=== PATIENT | female | born 1965 | race Caucasian/White ===

== ENCOUNTER 2017-05-26 22:48 | Inpatient (IN) | payer MEDICARE, MEDICAID ==
[~2017-05-26] VITALS: Ht 167.6 cm; Wt 83.0 kg
[~2017-05-26 22:48] MED LIST: AMLO10TA2 PO; AMOX1TAB61 PO; ASPI-612 PO; BUPR300T3 PO; CARV3.12 PO; CHOL500050 PO; FERR-26 PO; FURO80TA3 PO; GABA-585 PO; GABA-586 PO; HYDR-2758 PO; INSU100C SQ; INSU100V8 SQ; LEVO100T5 PO; LORA0.5T PO; METF500T4 PO; MULT1TAB52 PO; ONDA4TAB10 SL; PANT40TA5 PO; SENN-79 PO; VERA120T5 PO; [UNRECOGNIZED DRUG - OTHER]; vitamin c
--- NOTE | 2017-05-26 23:24 | PHYS DOC ---
Past Medical History Past Medical History: Anemia, Cancer, CHF, Depression, Diabetes-Type II, Hypertension, Hypothyroid, Renal Disease, Other Additional Past Medical Histor: cancer of vulva, central tremors,migraine Past Surgical History: Appendectomy, Cholecystectomy, Tubal ligation Additional Past Surgical Histo: med. dx -neuropathy,retinopathy, restless leg syndrome, ear graph Alcohol Use: None Drug Use: None Adult General Chief Complaint Chief Complaint: HEADACHE HPI HPI Patient is a 51 year old female who presents with headache. She states that she has a history of migraines and this is a little different his been going on for 5 days and has not stopped. She denies any fevers chills, vomiting, or neck stiffness. Rates the pain is in her bilateral ears which is a little bit different than her normal pain she does have photophobia and nausea which is her normal migraine. She states usually she takes Vicodin when it flares up but she's been away from her home for the last 5 days and her Vicodin is at home. She states Home is about 70 miles away. She was seen by 2 different ERs the first one she was given Reglan and Benadryl and then the second one she was going to be admitted based on her hyperkalemia but she was requesting narcotic pain meds and since it wasn't offered she decided to sign out AMA. She states she just got off antibiotics recently for an ear infection. Review of Systems Review of Systems Constitutional: Denies fever or chills [] Eyes: Denies change in visual acuity, redness, or eye pain [] HENT: Denies nasal congestion or sore throat [] Respiratory: Denies cough or shortness of breath [] Cardiovascular: No additional information not addressed in HPI [] GI: Denies abdominal pain, nausea, vomiting, bloody stools or diarrhea [] : Denies dysuria or hematuria [] Musculoskeletal: Denies back pain or joint pain [] Integument: Denies rash or skin lesions [] Neurologic: Positive for headache, Denies focal weakness or sensory changes [] Endocrine: Denies polyuria or polydipsia [] All other systems were reviewed and found to be within normal limits, except as documented in this note. Current Medications Current Medications Current Medications Medications (Trade) Dose Ordered Sig/Amanda Start Time Stop Time Status Last Admin Dose Admin Morphine Sulfate 2 mg PRN Q15MIN PRN 11/25/17 00:00 05/27/17 03:00 DC 05/27/17 01:32 2 MG Allergies Allergies Allergies Coded Allergies Type Severity Reaction Last Updated Verified I S O L A T I O N *CONTACT* Allergy Unknown 04/09/16 Yes lisinopril Adverse Reaction Intermediate headache 04/09/16 Yes losartan Adverse Reaction Intermediate headache 04/09/16 Yes Physical Exam Physical Exam Constitutional: Well developed, well nourished, no acute distress, non-toxic appearance. [] HENT: Normocephalic, atraumatic, bilateral external ears normal, oropharynx moist, no oral exudates, nose normal. [] Eyes: PERRLA, EOMI, conjunctiva normal, no discharge. [] Neck: Normal range of motion, no tenderness, supple, no stridor. [] Cardiovascular:Heart rate regular rhythm, no murmur [] Lungs & Thorax: Bilateral breath sounds clear to auscultation [] Abdomen: Bowel sounds normal, soft, no tenderness, no masses, no pulsatile masses. [] Skin: Warm, dry, no erythema, no rash. [] Back: No tenderness, no CVA tenderness. [] Extremities: No tenderness, no cyanosis, no clubbing, ROM intact, no edema. [] Neurologic: Alert and oriented X 3, normal motor function, normal sensory function, no focal deficits noted. [] Psychologic: Affect normal, judgement normal, mood normal. [] Current Patient Data Vital Signs Vital Signs Date Time Temp Pulse Resp B/P (MAP) Pulse Ox O2 Delivery O2 Flow Rate FiO2 05/26/17 22:50 98.6 107 20 175/104 (127) 99 Room Air 98.6 Lab Values Laboratory Tests Test 05/26/17 23:25 05/26/17 23:30 Urine Collection Type Unknown Urine Color Yellow Urine Clarity Turbid Urine pH 6.0 Urine Specific [place] 1.025 Urine Protein >=300 mg/dL (NEG-TRACE) Urine Glucose (UA) >=1000 mg/dL (NEG) Urine Ketones (Stick) Trace mg/dL (NEG) Urine Blood Moderate (NEG) Urine Nitrite Negative (NEG) Urine Bilirubin Negative (NEG) Urine Urobilinogen Dipstick 0.2 mg/dL (0.2 mg/dL) Urine Leukocyte Esterase Small (NEG) Urine RBC 11-20 /HPF (0-2) Urine WBC >40 /HPF (0-4) Urine Squamous Epithelial Cells Mod /LPF Urine Bacteria Many /HPF (0-FEW) Urine Hyaline Casts Many /HPF Urine Opiates Screen Pos (NEG) Urine Methadone Screen Neg (NEG) Urine Barbiturates Neg (NEG) Urine Phencyclidine Screen Neg (NEG) Urine Amphetamine/Methamphetamine Neg (NEG) Urine Benzodiazepines Screen Neg (NEG) Urine Cocaine Screen Neg (NEG) Urine Cannabinoids Screen Neg (NEG) Urine Ethyl Alcohol Neg (NEG) White Blood Count 5.6 x10^3/uL (4.0-11.0) Red Blood Count 4.30 x10^6/uL (3.50-5.40) Hemoglobin 12.7 g/dL (12.0-15.5) Hematocrit 39.4 % (36.0-47.0) Mean Corpuscular Volume 92 fL (79-100) Mean Corpuscular Hemoglobin 30 pg (25-35) Mean Corpuscular Hemoglobin Concent 32 g/dL (31-37) Red Cell Distribution Width 16.4 % (11.5-14.5) H Platelet Count 226 x10^3/uL (140-400) Neutrophils (%) (Auto) 96 % (31-73) H Lymphocytes (%) (Auto) 3 % (24-48) L Monocytes (%) (Auto) 1 % (0-9) Eosinophils (%) (Auto) 0 % (0-3) Basophils (%) (Auto) 1 % (0-3) Neutrophils # (Auto) 5.4 x10^3uL (1.8-7.7) Lymphocytes # (Auto) 0.2 x10^3/uL (1.0-4.8) L Monocytes # (Auto) 0.0 x10^3/uL (0.0-1.1) Eosinophils # (Auto) 0.0 x10^3/uL (0.0-0.7) Basophils # (Auto) 0.0 x10^3/uL (0.0-0.2) Segmented Neutrophils % 90 % (35-66) H Band Neutrophils % 6 % (0-9) Lymphocytes % 4 % (24-48) L Platelet Estimate Adequate (ADEQUATE) Prothrombin Time 12.3 SEC (11.7-14.0) Prothrombin Time INR 1.0 (0.8-1.1) Sodium Level 138 mmol/L (136-145) Potassium Level 5.5 mmol/L (3.5-5.1) H Chloride Level 107 mmol/L (98-107) Carbon Dioxide Level 18 mmol/L (21-32) L Anion Gap 13 (6-14) Blood Urea Nitrogen 36 mg/dL (7-20) H Creatinine 3.6 mg/dL (0.6-1.0) H Estimated GFR (Cockcroft-Gault) 13.3 Glucose Level 323 mg/dL (70-99) H Calcium Level 8.6 mg/dL (8.5-10.1) Magnesium Level 1.7 mg/dL (1.8-2.4) L Total Bilirubin 0.3 mg/dL (0.2-1.0) Direct Bilirubin 0.1 mg/dL (0.0-0.2) Aspartate Amino Transferase (AST) 18 U/L (15-37) Alanine Aminotransferase (ALT) 27 U/L (14-59) Alkaline Phosphatase 152 U/L (46-116) H Creatine Kinase 191 U/L (26-192) Creatine Kinase MB (Mass) 4.8 ng/mL (0.0-3.6) H Creatine Kinase MB Relative Index 2.5 % (0-4) Troponin I Quantitative < 0.017 ng/mL (0.000-0.055) KE-Iaz-J-Type Natriuretic Peptide 6015 pg/mL (0-124) H Total Protein 6.6 g/dL (6.4-8.2) Albumin 2.7 g/dL (3.4-5.0) L Lipase 90 U/L (73-393) Thyroid Stimulating Hormone (TSH) 2.368 uIU/mL (0.358-3.74) Laboratory Tests 05/26/17 23:30 Laboratory Tests 05/26/17 23:30 EKG EKG EKG shows sinus tachycardia with rate of [address] elevations or T- wave inversions, left axis deviation noted, QTC 438 ms, as interpreted by me. Radiology/Procedures Radiology/Procedures [facility] [address] [place] [address] IMAGING REPORT Signed PATIENT: BJORN HOYT ACCOUNT: [id number] : 1965 LOCATION: ER AGE: 51 SEX: F EXAM STATUS: REG ER ORD. PHYSICIAN: LESLY SHERWOOD MD REASON: headache PROCEDURE: CT HEAD WO CONTRAST CT head without contrast: Reason for examination: Headache. Comparison is made to previous study dated 05/05/2017. Axial images were obtained through the brain. No contrast was administered. Exposure: One or more of the following individualized dose reduction techniques were utilized for this examination: 1. Automated exposure control 2. Adjustment of the mA and/or kV according to patient size 3. Use of iterative reconstruction technique. Ventricular systems are symmetric and not abnormally dilated. No midline shift is seen. There is no evidence of intracranial hemorrhage, infarct, mass or edema. No abnormalities are seen at the orbits. The paranasal sinuses and mastoid air cells are clear. No acute abnormality seen in the skull. IMPRESSION: No acute intracranial abnormality evident. Electronically signed by: Belen Gudino MD (05/27/2017 1:25 AM) [facility] DICTATED and SIGNED BY: BELEN GUDINO MD DATE: 05/27/17 0120 CC: HEBER KING MD; LESLY HSERWOOD MD ~ Impressions: Headache, migraine Hyperkalemia Chronic kidney disease Course & Med Decision Making Course & Med Decision Making Pertinent Labs and Imaging studies reviewed. (See chart for details) Skin slightly elevated, EKG does not show any acute abnormality's. CT head did not show any acute abnormality's. Patient's feeling a little better with IV morphine. We'll admit for pain control and to follow her potassium levels. This is her third ER visit she's had in the last 24 hours. Dragon Disclaimer Dragon Disclaimer This electronic medical record was generated, in whole or in part, using a voice recognition dictation system. Departure Departure Impression: Primary Impression: Renal insufficiency Additional Impression: Headache Disposition: ADMITTED INPATIENT Admitting Physician: Juventino Mohamud Condition: STABLE Referrals: NON,STAFF (PCP) Problem Qualifiers LESLY SHERWOOD MD May 26, 2017 23:23
[2017-05-26 23:38] LABS: BILIRUBIN,URINE NEGATIVE (NEG); GLUCOSE,URINE >=1000 mg/dL (NEG); NITRITE,URINE NEGATIVE (NEG); PROTEIN,URINE >=300 mg/dL (NEG-TRACE); UROBILINOGEN,URINE 0.2 mg/dL (0.2 mg/dL)
[2017-05-26 23:46] LABS: BARBITURATES NEG (NEG); BENZODIAZEPINES NEG (NEG); CANNABINOIDS NEG (NEG); COCAINE NEG (NEG); METHADONE NEG (NEG); OPIATES POS (NEG); PHENCYCLIDINE NEG (NEG)
[2017-05-26 23:49] LABS: BASO % 1 % (0-3); EOS % 0 % (0-3); HEMATOCRIT 39.4 % (36.0-47.0); HEMOGLOBIN 12.7 g/dL (12.0-15.5); LYMPH # 0.2 x10^3/uL (1.0-4.8); LYMPH % 3 % (24-48); MEAN CORPUSCULAR HEMOGLOBIN 30 pg (25-35); MEAN CORPUSCULAR HGB CONC 32 g/dL (31-37); MEAN CORPUSCULAR VOLUME 92 fL (79-100); MONO % 1 % (0-9); NEUT % 96 % (31-73); PLATELET COUNT 226 x10^3/uL (140-400); RED CELL DISTRIBUTION WIDTH 16.4 % (11.5-14.5); WHITE BLOOD COUNT 5.6 x10^3/uL (4.0-11.0)
[2017-05-27 00:05] LABS: CALCIUM 8.6 mg/dL (8.5-10.1); CREATININE 3.6 mg/dL (0.6-1.0); GFR 13.3; POTASSIUM 5.5 mmol/L (3.5-5.1)
[2017-05-27 00:07] LABS: PROTHROMBIN TIME PATIENT 12.3 SEC (11.7-14.0)
[2017-05-27] MEDS: MORPHINE SULFATE 2 MG/ML DISP.SYRIN. IV/SQ PRN ×2 (00:07→01:32)
[2017-05-27 00:09] LABS: ALBUMIN 2.7 g/dL (3.4-5.0); DIRECT BILIRUBIN 0.1 mg/dL (0.0-0.2); MAGNESIUM 1.7 mg/dL (1.8-2.4); TOTAL BILIRUBIN 0.3 mg/dL (0.2-1.0); TOTAL PROTEIN 6.6 g/dL (6.4-8.2)
[2017-05-27 00:12] LABS: BACTERIA,URINE MANY /HPF (0-FEW); SQUAMOUS EPITHELIAL CELL,UR MOD /LPF; WBC,URINE >40 /HPF (0-4)
[2017-05-27 00:14] LABS: CKMB MASS 4.8 ng/mL (0.0-3.6)
--- NOTE | 2017-05-27 01:29 | RAD ---
CT head without contrast: Reason for examination: Headache. Comparison is made to previous study dated 05/05/2017. Axial images were obtained through the brain. No contrast was administered. Exposure: One or more of the following individualized dose reduction techniques were utilized for this examination: 1. Automated exposure control 2. Adjustment of the mA and/or kV according to patient size 3. Use of iterative reconstruction technique. Ventricular systems are symmetric and not abnormally dilated. No midline shift is seen. There is no evidence of intracranial hemorrhage, infarct, mass or edema. No abnormalities are seen at the orbits. The paranasal sinuses and mastoid air cells are clear. No acute abnormality seen in the skull. IMPRESSION: No acute intracranial abnormality evident. Electronically signed by: Belen Arreguin MD (05/27/2017 1:25 AM) [facility]
[2017-05-27] MEDS ORDERED: ONDANSETRON PF 4 MG/2 ML VIAL. IV PRN ×2 (02:00→08:30)
[2017-05-27] MEDS ORDERED: MORPHINE SULFATE 2 MG/ML DISP.SYRIN. IV PRN (02:00)
[2017-05-27 04:27] VITALS: BP 187/109
[2017-05-27 05:19] LABS: PLT ESTIMATE ADEQUATE (ADEQUATE)
[2017-05-27 07:00] VITALS: BP 178/81
[2017-05-27] MEDS ORDERED: LABETALOL 20 MG/4 ML DISP.SYRIN. IVP PRN (08:30)
[2017-05-27] MEDS ORDERED: HYDROcodone/APAP 5/325MG 1 TAB TABLET PO PRN (08:30)
[2017-05-27] MEDS ORDERED: SENNOSIDES 8.6 MG TABLET PO PRN (08:30)
[2017-05-27] MEDS ORDERED: ACETAMINOPHEN 325 MG TABLET. PO PRN (08:30)
[2017-05-27] MEDS ORDERED: DEXTROSE 50% 25 GM / 50ML DISP.SYRIN. IV PRN (08:30)
[2017-05-27] MEDS ORDERED: diazePAM 2 MG TABLET PO PRN (08:30)
[2017-05-27] MEDS ORDERED: ONDANSETRON ODT 4 MG TAB.RAPDIS. PO PRN (08:30)
[2017-05-27] MEDS ORDERED: NON FORMULARY ITEM (Cholecalciferol (Vitamin D3) (Vitamin D) 50,000 UNIT) PO SCH (09:00)
[2017-05-27] MEDS ORDERED: GABAPENTIN 100 MG CAPSULE. PO SCH (09:00)
[2017-05-27] MEDS ORDERED: MULTIVITAMIN with MINERAL TABLET. PO SCH (09:00)
[2017-05-27] MEDS ORDERED: ASPIRIN ENTERIC COATED 81 MG TABLET.DR. PO SCH (09:00)
[2017-05-27] MEDS ORDERED: FERROUS SULFATE 325 MG TABLET. PO SCH (09:00)
[2017-05-27] MEDS ORDERED: CARVEDILOL 3.125 MG TABLET. PO SCH (09:00)
[2017-05-27] MEDS ORDERED: buPROPion XL 150 MG TAB.ER.24H. PO SCH (09:00)
[2017-05-27] MEDS ORDERED: MAGNESIUM SULFATE 2GM 50 ML IV ONE (09:00)
[2017-05-27] MEDS ORDERED: VERAPAMIL 40 MG TABLET. PO SCH (09:00)
[2017-05-27] MEDS ORDERED: GABAPENTIN 300 MG CAPSULE. PO SCH (09:00)
[2017-05-27 10:02] VITALS: BP 176/76
--- NOTE | 2017-05-27 10:11 | RAD ---
RENAL COMPLETE BILATERAL History:ELEVATED BUN, CREATININE Comparison: None Findings:Multiple sonographic images of the kidneys and retroperitoneal structures are submitted. Right kidney measures 11 x 5.2 x 3.8 cm. Left kidney measured 10.9 x 5 x 5.7 cm. There is no hydronephrosis of either kidney. Renal echogenicity can be considered within normal limits. Visualized abdominal aortic caliber is within normal limits at 1.3 cm. There is segmental visualization of the inferior vena cava. Prevoid estimated urinary bladder volume was 606 cc, postvoid residual of 176 cc. Urinary bladder morphology is within normal limits. Impression: 1.There is no hydronephrosis of either kidney. 2. There is post void residual in the urinary bladder.
[2017-05-27] MEDS ORDERED: CARV6.25 PO (11:17)
[2017-05-27] MEDS ORDERED: CARV12.5 PO (11:17)
[2017-05-27] MEDS ORDERED: FOLI0.8T3 PO (11:17)
[2017-05-27] MEDS ORDERED: METO10TA81 PO (11:17)
[2017-05-27] MEDS ORDERED: SEVE800T9 PO (11:17)
[2017-05-27] MEDS ORDERED: LEXAPRO20 MG PO (11:17)
[2017-05-27] MEDS ORDERED: INSU100V8 SQ (11:17)
--- NOTE | 2017-05-27 11:22 | EKG ---
[facility] [address] [place] [address] Test Date: 2017-05-26 Test Time: 23:32:42 Pat Name: BJORN HOYT Department: Room: [facility] Gender: F [employer] Officer: : 1965 Requested By: LESLY SHERWOOD Order Number: [id number] Reading MD: John Bob Measurements Intervals [place] Rate: 108 P: 59 MT: 130 QRS: -11 QRSD: 82 T: 30 QT: 324 QTc: 438 Interpretive Statements SINUS TACHYCARDIA LEFTWARD AXIS Electronically Signed On 06-05-2017 14:15:45 [employer] by John Bob
[2017-05-27] MEDS ORDERED: INSULIN LISPRO SQ SCH (11:30)
[2017-05-27] MEDS: PANTOPRAZOLE 40 MG TABLET.DR. PO SCH (12:45)
[2017-05-27] MEDS: METOCLOPRAMIDE 10 MG TABLET. PO SCH ×2 (12:45→17:29)
[2017-05-27] MEDS: FOLIC/VIT B COMP W-C (RENAL) TABLET. PO SCH (12:45)
[2017-05-27] MEDS: LEVOTHYROXINE 100 MCG TABLET PO SCH (12:45)
[2017-05-27] MEDS: LORazepam 0.5 MG TABLET PO SCH ×3 (12:45→21:06)
[2017-05-27] MEDS: amLODIPine BESYLATE 10 MG TABLET PO SCH (12:47)
[2017-05-27] MEDS: IV NORMAL SALINE 1000ML BAG 1,000 ML IV SCH ×2 (12:49→23:03)
[2017-05-27] MEDS: cefTRIAXone IV Push 1 GM VIAL. IVP SCH (12:57)
[2017-05-27] MEDS: CITALOPRAM 20 MG TABLET. PO SCH (13:06)
[2017-05-27] MEDS: INSULIN ASPART 300 UNITS/3 ML INSULN.PEN SQ SCH ×2 (13:11→17:34)
--- NOTE | 2017-05-27 14:17 | PDOC1 ---
History and Physical Date of Admission Date of Admission DATE: 05/27/17 TIME: 14:12 Identification/Chief Complaint Chief Complaint migraine headaches Problems: Source Source: Caregiver, Chart review, Patient History of Present Illness History of Present Illness 51 y.o female who takes Vicodin at home, has visited 2 health facilities bec of migraine but was sent home and she was quite disappointed with that, She takes vicodin at home for it. BUt she was admitted here bec creat 3,6, known CKD baseline 2,6 accdg to her acct, sees an outside pediatric critical care nurse, Still makes good UO,. NOT TRUE THAT SHE STILL TAKES LASIX AND METFORMIN AT HOME. Mag is low 1,7, K 5.5, Bicarb ok, TSH normal, CKMB mildly high, denies CP,. EKG ok, UTI on labs, no sxs, BP on high side Past Medical History Cardiovascular: HTN Pulmonary: Pneumonia CENTRAL NERVOUS SYSTEM: Migraine, Periperal neuropathy, Other Heme/Onc: Anemia NOS, Cancer Psych: Depression Musculoskeletal: Osteoarthritis Rheumatologic: No pertinent hx Infectious disease: No pertinent hx Renal/: Chronic renal insuff Endocrine: Diabetes, Hypothyroidism Past Surgical History Past Surgical History: Appendectomy, Cholecystectomy, Tubal Ligation Family History Family History: Diabetes Social History Smoke: No ALCOHOL: none Drugs: None Current Problem List Problem List Problems Medical Problems: (1) Headache Status: Acute (2) Renal insufficiency Status: Acute Problems: Current Medications Current Medications Current Medications Morphine Sulfate 2 mg PRN Q15MIN PRN IV/SQ PAIN GREATER THAN 3/10 Last administered on 05/27/17 01:32; Start 05/27/17 at 00:00; Stop 05/27/17 at 03 :00; Status DC Ceftriaxone Sodium 50 ml @ 100 mls/hr 1X ONCE IV Last administered on 01:32; Start 05/27/17 at 02:00; Stop 05/27/17 at 02:29; Status DC Ondansetron HCl (Zofran) 4 mg PRN Q8HRS PRN IV NAUSEA/VOMITING Last administered on 05/27/17 04:29; Start 05/27/17 at 02:00; Stop 05/27/17 at 08 :27; Status DC Morphine Sulfate 2 mg PRN Q2HR PRN IV SEVERE PAIN Last administered on 04:29; Start 05/27/17 at 02:00; Stop 05/28/17 at 01:59 Ondansetron HCl (Zofran) 4 mg PRN Q6HRS PRN IV NAUSEA/VOMITING; Start at 08:30; Stop 05/28/17 at 08:29 Ceftriaxone Sodium 1 gm/ Dextrose 50 ml @ 100 mls/hr Q24H IV ; Start 05/27/17 at 08:30; Stop 05/27/17 at 08:39; Status DC Sodium Chloride 1,000 ml @ 100 mls/hr Q10H IV Last administered on 05/27/17 12:49; Start 05/27/17 at 08:30 Diazepam (Valium) 2 mg PRN QID PRN PO ANXIETY; Start 05/27/17 at 08:30 Acetaminophen (Tylenol) 650 mg PRN Q6HRS PRN PO pain; Start 05/27/17 at 08:30 Amlodipine Besylate (Norvasc) 10 mg DAILY PO Last administered on 05/27/17 12 :47; Start 05/27/17 at 09:00 Aspirin (Ecotrin) 81 mg DAILY PO ; Start 05/27/17 at 09:00; Stop 05/27/17 at 11:43; Status DC Carvedilol (Coreg) 3.125 mg BIDWMEALS PO ; Start 05/27/17 at 09:00; Stop 05/27 at 11:43; Status DC Ferrous Sulfate (Feosol) 325 mg TIDWMEALS PO ; Start 05/27/17 at 09:00; Stop 05/27/17 at 11:43; Status DC Gabapentin (Neurontin) 200 mg DAILY PO ; Start 05/27/17 at 09:00; Stop at 11:43; Status DC Acetaminophen/ Hydrocodone Bitart (Lortab 5/325) 1 tab PRN Q6HRS PRN PO PAIN; Start 05/27/17 at 08:30 Acetaminophen/ Hydrocodone Bitart (Lortab 5/325) 1 tab PRN Q6HRS PRN PO PAIN; Start 05/27/17 at 08:30; Stop 05/27/17 at 11:43; Status DC Levothyroxine Sodium (Synthroid) 100 mcg DAILY07 PO Last administered on 12:45; Start 05/27/17 at 10:30 Lorazepam (Ativan) 0.5 mg TID PO Last administered on 05/27/17 12:45; Start 05/27/17 at 09:00 Ondansetron HCl (Zofran Odt) 4 mg PRN Q8HRS PRN PO NAUSEA; Start 05/27/17 at 08:30 Pantoprazole Sodium (Protonix) 40 mg DAILYAC PO Last administered on 12:45; Start 05/27/17 at 08:30 Sennosides (Senna) 17.2 mg PRN BID PRN PO CONSTIPATION; Start 05/27/17 at 08: 30 Bupropion HCl (Wellbutrin Xl) 300 mg DAILY PO ; Start 05/27/17 at 09:00; Stop 05/27/17 at 11:43; Status DC Non-Formulary Medication 50,000 unit WEEKLY PO ; Start 05/27/17 at 09:00; Stop 05/27/17 at 11:43; Status DC Gabapentin (Neurontin) 300 mg DAILY PO ; Start 05/27/17 at 09:00; Stop at 11:43; Status DC Insulin Detemir (Levemir) 10 units QHS SQ ; Start 05/27/17 at 21:00 Non-Formulary Medication TIDAC SQ ; Start 05/27/17 at 11:30; Status UNV Multivitamins (Thera M Plus) 1 tab DAILY PO ; Start 05/27/17 at 09:00; Stop at 11:43; Status DC Verapamil HCl (Calan) 120 mg TID PO ; Start 05/27/17 at 09:00; Stop 05/27/17 at 11:43; Status DC Insulin Aspart (NovoLOG) 0-9 UNITS TIDWMEALS SQ Last administered on 13:11; Start 05/27/17 at 12:00 Dextrose (Dextrose 50%-Water Syringe) 12.5 gm PRN Q15MIN PRN IV SEE COMMENTS; Start 05/27/17 at 08:30 Labetalol HCl (Normodyne) 10 mg PRN Q2HR PRN IVP HYPERTENSION, SEE COMMENTS; Start 05/27/17 at 08:30 Ceftriaxone Sodium (Rocephin) 1 gm Q24H IVP Last administered on 05/27/17 12: 57; Start 05/27/17 at 09:00 Magnesium Sulfate/ Dextrose 50 ml @ 25 mls/hr 1X ONCE IV Last administered on 05/27/17 12:55; Start 05/27/17 at 09:00; Stop 05/27/17 at 10:59; Status DC Vitamin B Complex/ Vitamin C (Marry-Marisa) 1 tab DAILY PO Last administered on 12:45; Start 05/27/17 at 12:00 Metoclopramide HCl (Reglan) 10 mg BIDAC PO Last administered on 05/27/17 12: 45; Start 05/27/17 at 11:30 Citalopram Hydrobromide (CeleXA) 40 mg DAILY PO Last administered on 13:06; Start 05/27/17 at 12:00 Non-Formulary Medication 10 unit HS SQ ; Start 05/27/17 at 21:00; Status UNV Active Scripts Active Zofran Odt (Ondansetron) 4 Mg Tab.rapdis 1 Tab SL PRN Q8HRS PRN Hydrocodone-Apap 5-325 (Hydrocodone Bit/Acetaminophen) 1 Each Tablet 1 Tab PO PRN Q6HRS PRN Pantoprazole Sodium 40 Mg Tablet.dr 40 Mg PO DAILYAC Senna (Sennosides) 8.6 Mg Tablet 17.2 Mg PO PRN BID PRN Reported Coreg (Carvedilol) 12.5 Mg Tablet 1 Tab PO BID Coreg (Carvedilol) 6.25 Mg Tablet 1 Tab PO BID Lantus (Insulin Glargine,Hum.rec.anlog) 100 Unit/1 Ml Vial 10 Unit SQ HS Nephro-Marisa Tablet (Folic Acid/Vitamin B Comp W-C) 0.8 Mg Tablet 1 Tab PO DAILY Reglan (Metoclopramide Hcl) 10 Mg Tablet 10 Mg PO BIDAC Lexapro (Escitalopram Oxalate) 20 Mg Tablet 1 Tab PO DAILY Renvela (Sevelamer Carbonate) 800 Mg Tablet 2 Tab PO TID Amlodipine Besylate 10 Mg Tablet 10 Mg PO DAILY Humalog (Insulin Lispro) 100 Unit/1 Ml Cartridge 0 SQ TIDAC Sliding scale insulin: blood sugar divided by 25 = units Levothyroxine Sodium 100 Mcg Tablet 1 Tab PO DAILY Lorazepam 0.5 Mg Tablet 1 Tab PO TID 9am 3pm and 9pm Gabapentin 300 Mg Capsule 300 Mg PO HS 300 mg daily at 9pm Allergies Allergies: Coded Allergies: I S O L A T I O N *CONTACT* (Verified Allergy, Unknown, 04/09/16) mrsa lisinopril (Verified Adverse Reaction, Intermediate, headache, 04/09/16) losartan (Verified Adverse Reaction, Intermediate, headache, 04/09/16) ROS Review of System migraines, otherwise all else is neg 14 pt reviewed Physical Exam General: Alert, Oriented X3, Cooperative, No acute distress HEENT: Atraumatic, PERRLA, EOMI Lungs: Clear to auscultation, Normal air movement Heart: S1S2, RRR, no thrills, no rubs, no gallops, no murmurs Cardiovascular: S1, S2 Breasts: Normal, Rt breast nml w/o mass, Lt breast nml w/o mass, Nipples normal Abdomen: Normal bowel sounds, Soft, No tenderness, No hepatosplenomegaly, No masses Rectal Exam: not examined PELVIC: Nml ext genitalia Extremities: No clubbing, No cyanosis, No edema, Normal pulses, No tenderness/ swelling Skin: No rashes, No breakdown, No significant lesion Neuro: Normal gait, Normal speech, Strength at 5/5 X4 ext, Normal tone, Sensation intact, Cranial nerves 3-12 NL, Reflexes 2+ Psych/Mental Status: Mental status NL, Mood NL Vitals Vitals Vital Signs Date Time Temp Pulse Resp B/P (MAP) Pulse Ox O2 Delivery O2 Flow Rate FiO2 05/27/17 12:47 88 176/76 05/27/17 10:02 99.0 15 93 Room Air 99.0 Labs Labs Laboratory Tests Test 05/26/17 23:25 05/26/17 23:30 05/27/17 11:50 Urine Collection Type Unknown Urine Color Yellow Urine Clarity Turbid Urine pH 6.0 Urine Specific Bear 1.025 Urine Protein >=300 mg/dL (NEG-TRACE) Urine Glucose (UA) >=1000 mg/dL (NEG) Urine Ketones (Stick) Trace mg/dL (NEG) Urine Blood Moderate (NEG) Urine Nitrite Negative (NEG) Urine Bilirubin Negative (NEG) Urine Urobilinogen Dipstick 0.2 mg/dL (0.2 mg/dL) Urine Leukocyte Esterase Small (NEG) Urine RBC 11-20 /HPF (0-2) Urine WBC >40 /HPF (0-4) Urine Squamous Epithelial Cells Mod /LPF Urine Bacteria Many /HPF (0-FEW) Urine Hyaline Casts Many /HPF Urine Opiates Screen Pos (NEG) Urine Methadone Screen Neg (NEG) Urine Barbiturates Neg (NEG) Urine Phencyclidine Screen Neg (NEG) Urine Amphetamine/Methamphetamine Neg (NEG) Urine Benzodiazepines Screen Neg (NEG) Urine Cocaine Screen Neg (NEG) Urine Cannabinoids Screen Neg (NEG) Urine Ethyl Alcohol Neg (NEG) White Blood Count 5.6 x10^3/uL (4.0-11.0) Red Blood Count 4.30 x10^6/uL (3.50-5.40) Hemoglobin 12.7 g/dL (12.0-15.5) Hematocrit 39.4 % (36.0-47.0) Mean Corpuscular Volume 92 fL (79-100) Mean Corpuscular Hemoglobin 30 pg (25-35) Mean Corpuscular Hemoglobin Concent 32 g/dL (31-37) Red Cell Distribution Width 16.4 % (11.5-14.5) Platelet Count 226 x10^3/uL (140-400) Neutrophils (%) (Auto) 96 % (31-73) Lymphocytes (%) (Auto) 3 % (24-48) Monocytes (%) (Auto) 1 % (0-9) Eosinophils (%) (Auto) 0 % (0-3) Basophils (%) (Auto) 1 % (0-3) Neutrophils # (Auto) 5.4 x10^3uL (1.8-7.7) Lymphocytes # (Auto) 0.2 x10^3/uL (1.0-4.8) Monocytes # (Auto) 0.0 x10^3/uL (0.0-1.1) Eosinophils # (Auto) 0.0 x10^3/uL (0.0-0.7) Basophils # (Auto) 0.0 x10^3/uL (0.0-0.2) Segmented Neutrophils % 90 % (35-66) Band Neutrophils % 6 % (0-9) Lymphocytes % 4 % (24-48) Platelet Estimate Adequate (ADEQUATE) Prothrombin Time 12.3 SEC (11.7-14.0) Prothromb Time International Ratio 1.0 (0.8-1.1) Sodium Level 138 mmol/L (136-145) Potassium Level 5.5 mmol/L (3.5-5.1) Chloride Level 107 mmol/L (98-107) Carbon Dioxide Level 18 mmol/L (21-32) Anion Gap 13 (6-14) Blood Urea Nitrogen 36 mg/dL (7-20) Creatinine 3.6 mg/dL (0.6-1.0) Estimated GFR (Cockcroft-Gault) 13.3 Glucose Level 323 mg/dL (70-99) Calcium Level 8.6 mg/dL (8.5-10.1) Magnesium Level 1.7 mg/dL (1.8-2.4) Total Bilirubin 0.3 mg/dL (0.2-1.0) Direct Bilirubin 0.1 mg/dL (0.0-0.2) Aspartate Amino Transf (AST/SGOT) 18 U/L (15-37) Alanine Aminotransferase (ALT/SGPT) 27 U/L (14-59) Alkaline Phosphatase 152 U/L (46-116) Creatine Kinase 191 U/L (26-192) Creatine Kinase MB (Mass) 4.8 ng/mL (0.0-3.6) Creatine Kinase MB Relative Index 2.5 % (0-4) Troponin I Quantitative < 0.017 ng/mL (0.000-0.055) NP-Pzq-[id number]-Type Natriuretic Peptide 6015 pg/mL (0-124) Total Protein 6.6 g/dL (6.4-8.2) Albumin 2.7 g/dL (3.4-5.0) Lipase 90 U/L (73-393) Thyroid Stimulating Hormone (TSH) 2.368 uIU/mL (0.358-3.74) Glucose (Fingerstick) 192 mg/dL (70-99) Laboratory Tests Test 05/26/17 23:25 05/26/17 23:30 05/27/17 11:50 Urine Collection Type Unknown Urine Color Yellow Urine Clarity Turbid Urine pH 6.0 Urine Specific Bear 1.025 Urine Protein >=300 mg/dL (NEG-TRACE) Urine Glucose (UA) >=1000 mg/dL (NEG) Urine Ketones (Stick) Trace mg/dL (NEG) Urine Blood Moderate (NEG) Urine Nitrite Negative (NEG) Urine Bilirubin Negative (NEG) Urine Urobilinogen Dipstick 0.2 mg/dL (0.2 mg/dL) Urine Leukocyte Esterase Small (NEG) Urine RBC 11-20 /HPF (0-2) Urine WBC >40 /HPF (0-4) Urine Squamous Epithelial Cells Mod /LPF Urine Bacteria Many /HPF (0-FEW) Urine Hyaline Casts Many /HPF Urine Opiates Screen Pos (NEG) Urine Methadone Screen Neg (NEG) Urine Barbiturates Neg (NEG) Urine Phencyclidine Screen Neg (NEG) Urine Amphetamine/Methamphetamine Neg (NEG) Urine Benzodiazepines Screen Neg (NEG) Urine Cocaine Screen Neg (NEG) Urine Cannabinoids Screen Neg (NEG) Urine Ethyl Alcohol Neg (NEG) White Blood Count 5.6 x10^3/uL (4.0-11.0) Red Blood Count 4.30 x10^6/uL (3.50-5.40) Hemoglobin 12.7 g/dL (12.0-15.5) Hematocrit 39.4 % (36.0-47.0) Mean Corpuscular Volume 92 fL (79-100) Mean Corpuscular Hemoglobin 30 pg (25-35) Mean Corpuscular Hemoglobin Concent 32 g/dL (31-37) Red Cell Distribution Width 16.4 % (11.5-14.5) Platelet Count 226 x10^3/uL (140-400) Neutrophils (%) (Auto) 96 % (31-73) Lymphocytes (%) (Auto) 3 % (24-48) Monocytes (%) (Auto) 1 % (0-9) Eosinophils (%) (Auto) 0 % (0-3) Basophils (%) (Auto) 1 % (0-3) Neutrophils # (Auto) 5.4 x10^3uL (1.8-7.7) Lymphocytes # (Auto) 0.2 x10^3/uL (1.0-4.8) Monocytes # (Auto) 0.0 x10^3/uL (0.0-1.1) Eosinophils # (Auto) 0.0 x10^3/uL (0.0-0.7) Basophils # (Auto) 0.0 x10^3/uL (0.0-0.2) Segmented Neutrophils % 90 % (35-66) Band Neutrophils % 6 % (0-9) Lymphocytes % 4 % (24-48) Platelet Estimate Adequate (ADEQUATE) Prothrombin Time 12.3 SEC (11.7-14.0) Prothromb Time International Ratio 1.0 (0.8-1.1) Sodium Level 138 mmol/L (136-145) Potassium Level 5.5 mmol/L (3.5-5.1) Chloride Level 107 mmol/L (98-107) Carbon Dioxide Level 18 mmol/L (21-32) Anion Gap 13 (6-14) Blood Urea Nitrogen 36 mg/dL (7-20) Creatinine 3.6 mg/dL (0.6-1.0) Estimated GFR (Cockcroft-Gault) 13.3 Glucose Level 323 mg/dL (70-99) Calcium Level 8.6 mg/dL (8.5-10.1) Magnesium Level 1.7 mg/dL (1.8-2.4) Total Bilirubin 0.3 mg/dL (0.2-1.0) Direct Bilirubin 0.1 mg/dL (0.0-0.2) Aspartate Amino Transf (AST/SGOT) 18 U/L (15-37) Alanine Aminotransferase (ALT/SGPT) 27 U/L (14-59) Alkaline Phosphatase 152 U/L (46-116) Creatine Kinase 191 U/L (26-192) Creatine Kinase MB (Mass) 4.8 ng/mL (0.0-3.6) Creatine Kinase MB Relative Index 2.5 % (0-4) Troponin I Quantitative < 0.017 ng/mL (0.000-0.055) ID-Inu-W-Type Natriuretic Peptide 6015 pg/mL (0-124) Total Protein 6.6 g/dL (6.4-8.2) Albumin 2.7 g/dL (3.4-5.0) Lipase 90 U/L (73-393) Thyroid Stimulating Hormone (TSH) 2.368 uIU/mL (0.358-3.74) Glucose (Fingerstick) 192 mg/dL (70-99) VTE Prophylaxis Ordered VTE Prophylaxis Devices: Yes VTE Pharmacological Prophylaxi: Yes Assessment/Plan Assessment/Plan 1. Juani on CKD likely stage 3 2. Hyperkalmiea 3., MIgraines, acute on chronic, has been on imitrex and excedrin in past 4. UTI, asymptomatic 5. DM 2 unknown [id number] 6. Hypomagnesemia PLAN: Admit 2 MN Renal consult IVF check renal sono renal panel daily NO nephrotoxions Hold lasix and metformin Start abx for UTI replace mag 2 gms IV Valium prn - we dont carry vicodin PT.OT JEFFRY OLIVARES MD May 27, 2017 14:17
[2017-05-27 15:04] VITALS: BP 181/86
[2017-05-27] MEDS: SODIUM BICARBONATE 650 MG TABLET. PO SCH ×2 (17:29→21:06)
[2017-05-27 19:00] VITALS: BP 121/56
--- NOTE | 2017-05-27 19:17 | CONS ---
DATE OF CONSULTATION: REQUESTING PHYSICIAN: Torrey Simmons REASON FOR CONSULTATION: Renal failure. HISTORY OF PRESENT ILLNESS: This 51-year-old female who presents to the hospital with migraine. She is evaluated at the Emergency Department prior to summoning EMS to bring her to [facility]. She is currently pain free per her report. She follows with Dr. Thomas Garvey for her underlying chronic kidney disease with baseline serum creatinine of 2.6 mg percent. Her current creatinine is increased to 3.6 mg percent. She was dialysis dependent for approximately two months, but has been dialysis independent. The patient denies nausea, vomiting or diarrhea. She does have a history of diabetes mellitus. PAST MEDICAL HISTORY: Diabetes mellitus, hypertension, migraines, peripheral neuropathy, depression, degenerative arthritis and hypothyroidism. PAST SURGICAL HISTORY: Appendectomy, cholecystectomy, tubal ligation, PermCath placement and removal. ALLERGIES: LISINOPRIL AND LOSARTAN. MEDICATIONS: Per med list. FAMILY HISTORY: Noncontributory. SOCIAL HISTORY: The patient resides independently. REVIEW OF SYSTEMS: No headaches, sinus problems, nasal drainage, epistaxis, change in vision or hearing, no further headache. No difficulty swallowing. No nausea, vomiting or diarrhea. No seizures. PHYSICAL EXAMINATION: GENERAL APPEARANCE: The patient is awake and conversant. HEENT: Clear. NECK: No increased JVD. No thyromegaly, mass, adenopathy. LUNGS: Clear. CARDIAC: Without S3 or rub. ABDOMEN: Soft, nontender, no bruits. EXTREMITIES: Without edema. NEUROLOGIC: Nonfocal localizing. PSYCHIATRIC: Fair attention to detail, appropriate affect. IMAGING: Renal ultrasound: No hydronephrosis. Right kidney 11 cm and left 10.9 cm. Postvoid residual was 176 mL. LABORATORY DATA: Sodium 138, potassium 5.5, chloride 107, CO2 18, BUN 36, creatinine 3.6, GFR is 13. Hemoglobin 12.7 and hematocrit 39.4%. IMPRESSION: 1. Chronic kidney disease -- baseline said to be 2.6 mg percent creatinine and currently is 3.6 with corresponding GFR of 13 mL per minute. 2. Metabolic acidosis. 3. Hyperkalemia secondary to #1 and #2. DISCUSSION: Agree with IV fluid. Renal ultrasound reveals no obstructive pathology. If the patient does not improve, would be at ESRD status. She follows with Dr. Thomas Garvey. With metabolic acidosis, we will initiate treatment with oral sodium bicarbonate. Need to continue glucose control. Anticipate her underlying chronic kidney disease related to diabetic nephropathy. There is no emergent indication for dialysis at this time. BETSY SULLIVAN MD DR: ANNEL/alvin JOB#: [id number] / [id number]
[2017-05-27] MEDS ORDERED: INSULIN GLARGINE HUM REC ANLOG 10 UNIT SQ SCH (21:00)
[2017-05-27] MEDS: LACTOBACILLUS RHAMNOSUS GG 1 CAPSULE. PO SCH (21:06)
[2017-05-27] MEDS: INSULIN DETEMIR 300 UNITS/3 ML INSULN.PEN. SQ SCH (21:09)
[2017-05-27 23:00] VITALS: BP 108/45
[2017-05-27] MEDS: HYDROcodone/APAP 5/325MG 1 TAB TABLET PO PRN (23:50)
[2017-05-28 02:44] VITALS: BP 131/61
[2017-05-28] MEDS: IV NORMAL SALINE 1000ML BAG 1,000 ML IV SCH ×2 (04:30→14:50)
[2017-05-28 05:05] LABS: BASO # 0.1 x10^3/uL (0.0-0.2); BASO % 1 % (0-3); EOS % 2 % (0-3); HEMATOCRIT 27.4 % (36.0-47.0); HEMOGLOBIN 8.9 g/dL (12.0-15.5); LYMPH % 21 % (24-48); MEAN CORPUSCULAR HEMOGLOBIN 30 pg (25-35); MEAN CORPUSCULAR HGB CONC 32 g/dL (31-37); MEAN CORPUSCULAR VOLUME 93 fL (79-100); MONO % 10 % (0-9); NEUT % 67 % (31-73); PLATELET COUNT 162 x10^3/uL (140-400); RED BLOOD COUNT 2.95 x10^6/uL (3.50-5.40); WHITE BLOOD COUNT 4.9 x10^3/uL (4.0-11.0)
[2017-05-28 05:28] LABS: CALCIUM 7.6 mg/dL (8.5-10.1); CREATININE 3.7 mg/dL (0.6-1.0); GFR 12.9; POTASSIUM 4.9 mmol/L (3.5-5.1)
[2017-05-28 07:00] VITALS: BP 150/72
[2017-05-28] MEDS: INSULIN ASPART 300 UNITS/3 ML INSULN.PEN SQ SCH ×3 (08:29→17:18)
[2017-05-28] MEDS: cefTRIAXone IV Push 1 GM VIAL. IVP SCH (08:37)
[2017-05-28] MEDS: PANTOPRAZOLE 40 MG TABLET.DR. PO SCH (08:37)
[2017-05-28] MEDS: LEVOTHYROXINE 100 MCG TABLET PO SCH (08:37)
[2017-05-28] MEDS: amLODIPine BESYLATE 10 MG TABLET PO SCH (08:38)
[2017-05-28] MEDS: SODIUM BICARBONATE 650 MG TABLET. PO SCH ×3 (08:38→20:42)
[2017-05-28] MEDS: LACTOBACILLUS RHAMNOSUS GG 1 CAPSULE. PO SCH ×2 (08:38→20:42)
[2017-05-28] MEDS: CITALOPRAM 20 MG TABLET. PO SCH (08:38)
[2017-05-28] MEDS: LORazepam 0.5 MG TABLET PO SCH ×3 (08:38→20:42)
[2017-05-28] MEDS: METOCLOPRAMIDE 10 MG TABLET. PO SCH ×2 (08:38→17:22)
[2017-05-28] MEDS: HYDROcodone/APAP 5/325MG 1 TAB TABLET PO PRN ×2 (08:42→17:22)
[2017-05-28] MEDS: FOLIC/VIT B COMP W-C (RENAL) TABLET. PO SCH (09:00)
--- NOTE | 2017-05-28 10:38 | PDOC ---
PROGRESS NOTES Chief Complaint Chief Complaint 1. Juani on CKD stage 5, nearing esrd 2. Hyperkalemia, resolved 3., MIgraines, acute on chronic, has been on imitrex and excedrin in past 4. UTI, asymptomatic 5. DM 2 unknown hgba1c 6. Hypomagnesemia, replaced History of Present Illness History of Present Illness CReat stable high at 3,.7 (baseline 2.6?) NEaring ESRD per renal note I did discuss with her she needs OP renal ff up Good UO so far CLaims needs to go home by tmr as lots of stuff to do this week for her medicaid IVF currently running Urine cx is positive GNR - no sxs PLAn: MAy shift to PO abx for UTI IVF per renal NO nephrotoxins US kidneys I have given copy to her - medico renal dse Migraines are not bothering her anymore (reason for her admission) Vitals Vitals Vital Signs Date Time Temp Pulse Resp B/P (MAP) Pulse Ox O2 Delivery O2 Flow Rate FiO2 05/28/17 08:38 79 150/72 05/28/17 07:00 97.5 16 98 Room Air 97.5 Physical Exam General: Alert, Oriented X3, Cooperative, No acute distress Lungs: Clear Abdomen: Normal bowel sounds, Soft, No tenderness, No hepatosplenomegaly, No masses Extremities: No clubbing, No cyanosis, No edema, Normal pulses, No tenderness/ swelling Skin: No rashes, No breakdown, No significant lesion Labs LABS Laboratory Tests Test 05/27/17 11:50 05/27/17 17:14 05/28/17 03:30 05/28/17 07:04 Glucose (Fingerstick) 192 mg/dL (70-99) 261 mg/dL (70-99) 137 mg/dL (70-99) White Blood Count 4.9 x10^3/uL (4.0-11.0) Red Blood Count 2.95 x10^6/uL (3.50-5.40) Hemoglobin 8.9 g/dL (12.0-15.5) Hematocrit 27.4 % (36.0-47.0) Mean Corpuscular Volume 93 fL (79-100) Mean Corpuscular Hemoglobin 30 pg (25-35) Mean Corpuscular Hemoglobin Concent 32 g/dL (31-37) Red Cell Distribution Width 17.0 % (11.5-14.5) Platelet Count 162 x10^3/uL (140-400) Neutrophils (%) (Auto) 67 % (31-73) Lymphocytes (%) (Auto) 21 % (24-48) Monocytes (%) (Auto) 10 % (0-9) Eosinophils (%) (Auto) 2 % (0-3) Basophils (%) (Auto) 1 % (0-3) Neutrophils # (Auto) 3.3 x10^3uL (1.8-7.7) Lymphocytes # (Auto) 1.0 x10^3/uL (1.0-4.8) Monocytes # (Auto) 0.5 x10^3/uL (0.0-1.1) Eosinophils # (Auto) 0.1 x10^3/uL (0.0-0.7) Basophils # (Auto) 0.1 x10^3/uL (0.0-0.2) Sodium Level 141 mmol/L (136-145) Potassium Level 4.9 mmol/L (3.5-5.1) Chloride Level 116 mmol/L (98-107) Carbon Dioxide Level 16 mmol/L (21-32) Anion Gap 9 (6-14) Blood Urea Nitrogen 44 mg/dL (7-20) Creatinine 3.7 mg/dL (0.6-1.0) Estimated GFR (Cockcroft-Gault) 12.9 Glucose Level 165 mg/dL (70-99) Calcium Level 7.6 mg/dL (8.5-10.1) Review of Systems Review of Systems no cp, headache, emesis, soa, abd pain Assessment and Plan Assessmemt and Plan Problems Medical Problems: (1) Headache Status: Acute (2) Renal insufficiency Status: Acute Problems: Comment Review of Relevant I have reviewed the following items kalin (where applicable) has been applied. Labs Laboratory Tests Test 05/26/17 23:25 05/26/17 23:30 05/27/17 11:50 05/27/17 17:14 Urine Collection Type Unknown Urine Color Yellow Urine Clarity Turbid Urine pH 6.0 Urine Specific Christine 1.025 Urine Protein >=300 mg/dL (NEG-TRACE) Urine Glucose (UA) >=1000 mg/dL (NEG) Urine Ketones (Stick) Trace mg/dL (NEG) Urine Blood Moderate (NEG) Urine Nitrite Negative (NEG) Urine Bilirubin Negative (NEG) Urine Urobilinogen Dipstick 0.2 mg/dL (0.2 mg/dL) Urine Leukocyte Esterase Small (NEG) Urine RBC 11-20 /HPF (0-2) Urine WBC >40 /HPF (0-4) Urine Squamous Epithelial Cells Mod /LPF Urine Bacteria Many /HPF (0-FEW) Urine Hyaline Casts Many /HPF Urine Opiates Screen Pos (NEG) Urine Methadone Screen Neg (NEG) Urine Barbiturates Neg (NEG) Urine Phencyclidine Screen Neg (NEG) Urine Amphetamine/Methamphetamine Neg (NEG) Urine Benzodiazepines Screen Neg (NEG) Urine Cocaine Screen Neg (NEG) Urine Cannabinoids Screen Neg (NEG) Urine Ethyl Alcohol Neg (NEG) White Blood Count 5.6 x10^3/uL (4.0-11.0) Red Blood Count 4.30 x10^6/uL (3.50-5.40) Hemoglobin 12.7 g/dL (12.0-15.5) Hematocrit 39.4 % (36.0-47.0) Mean Corpuscular Volume 92 fL (79-100) Mean Corpuscular Hemoglobin 30 pg (25-35) Mean Corpuscular Hemoglobin Concent 32 g/dL (31-37) Red Cell Distribution Width 16.4 % (11.5-14.5) Platelet Count 226 x10^3/uL (140-400) Neutrophils (%) (Auto) 96 % (31-73) Lymphocytes (%) (Auto) 3 % (24-48) Monocytes (%) (Auto) 1 % (0-9) Eosinophils (%) (Auto) 0 % (0-3) Basophils (%) (Auto) 1 % (0-3) Neutrophils # (Auto) 5.4 x10^3uL (1.8-7.7) Lymphocytes # (Auto) 0.2 x10^3/uL (1.0-4.8) Monocytes # (Auto) 0.0 x10^3/uL (0.0-1.1) Eosinophils # (Auto) 0.0 x10^3/uL (0.0-0.7) Basophils # (Auto) 0.0 x10^3/uL (0.0-0.2) Segmented Neutrophils % 90 % (35-66) Band Neutrophils % 6 % (0-9) Lymphocytes % 4 % (24-48) Platelet Estimate Adequate (ADEQUATE) Prothrombin Time 12.3 SEC (11.7-14.0) Prothromb Time International Ratio 1.0 (0.8-1.1) Sodium Level 138 mmol/L (136-145) Potassium Level 5.5 mmol/L (3.5-5.1) Chloride Level 107 mmol/L (98-107) Carbon Dioxide Level 18 mmol/L (21-32) Anion Gap 13 (6-14) Blood Urea Nitrogen 36 mg/dL (7-20) Creatinine 3.6 mg/dL (0.6-1.0) Estimated GFR (Cockcroft-Gault) 13.3 Glucose Level 323 mg/dL (70-99) Calcium Level 8.6 mg/dL (8.5-10.1) Magnesium Level 1.7 mg/dL (1.8-2.4) Total Bilirubin 0.3 mg/dL (0.2-1.0) Direct Bilirubin 0.1 mg/dL (0.0-0.2) Aspartate Amino Transf (AST/SGOT) 18 U/L (15-37) Alanine Aminotransferase (ALT/SGPT) 27 U/L (14-59) Alkaline Phosphatase 152 U/L (46-116) Creatine Kinase 191 U/L (26-192) Creatine Kinase MB (Mass) 4.8 ng/mL (0.0-3.6) Creatine Kinase MB Relative Index 2.5 % (0-4) Troponin I Quantitative < 0.017 ng/mL (0.000-0.055) KT-Awy-D-Type Natriuretic Peptide 6015 pg/mL (0-124) Total Protein 6.6 g/dL (6.4-8.2) Albumin 2.7 g/dL (3.4-5.0) Lipase 90 U/L (73-393) Thyroid Stimulating Hormone (TSH) 2.368 uIU/mL (0.358-3.74) Glucose (Fingerstick) 192 mg/dL (70-99) 261 mg/dL (70-99) Test 05/28/17 03:30 05/28/17 07:04 White Blood Count 4.9 x10^3/uL (4.0-11.0) Red Blood Count 2.95 x10^6/uL (3.50-5.40) Hemoglobin 8.9 g/dL (12.0-15.5) Hematocrit 27.4 % (36.0-47.0) Mean Corpuscular Volume 93 fL (79-100) Mean Corpuscular Hemoglobin 30 pg (25-35) Mean Corpuscular Hemoglobin Concent 32 g/dL (31-37) Red Cell Distribution Width 17.0 % (11.5-14.5) Platelet Count 162 x10^3/uL (140-400) Neutrophils (%) (Auto) 67 % (31-73) Lymphocytes (%) (Auto) 21 % (24-48) Monocytes (%) (Auto) 10 % (0-9) Eosinophils (%) (Auto) 2 % (0-3) Basophils (%) (Auto) 1 % (0-3) Neutrophils # (Auto) 3.3 x10^3uL (1.8-7.7) Lymphocytes # (Auto) 1.0 x10^3/uL (1.0-4.8) Monocytes # (Auto) 0.5 x10^3/uL (0.0-1.1) Eosinophils # (Auto) 0.1 x10^3/uL (0.0-0.7) Basophils # (Auto) 0.1 x10^3/uL (0.0-0.2) Sodium Level 141 mmol/L (136-145) Potassium Level 4.9 mmol/L (3.5-5.1) Chloride Level 116 mmol/L (98-107) Carbon Dioxide Level 16 mmol/L (21-32) Anion Gap 9 (6-14) Blood Urea Nitrogen 44 mg/dL (7-20) Creatinine 3.7 mg/dL (0.6-1.0) Estimated GFR (Cockcroft-Gault) 12.9 Glucose Level 165 mg/dL (70-99) Calcium Level 7.6 mg/dL (8.5-10.1) Glucose (Fingerstick) 137 mg/dL (70-99) Laboratory Tests Test 05/27/17 11:50 05/27/17 17:14 05/28/17 03:30 05/28/17 07:04 Glucose (Fingerstick) 192 mg/dL (70-99) 261 mg/dL (70-99) 137 mg/dL (70-99) White Blood Count 4.9 x10^3/uL (4.0-11.0) Red Blood Count 2.95 x10^6/uL (3.50-5.40) Hemoglobin 8.9 g/dL (12.0-15.5) Hematocrit 27.4 % (36.0-47.0) Mean Corpuscular Volume 93 fL (79-100) Mean Corpuscular Hemoglobin 30 pg (25-35) Mean Corpuscular Hemoglobin Concent 32 g/dL (31-37) Red Cell Distribution Width 17.0 % (11.5-14.5) Platelet Count 162 x10^3/uL (140-400) Neutrophils (%) (Auto) 67 % (31-73) Lymphocytes (%) (Auto) 21 % (24-48) Monocytes (%) (Auto) 10 % (0-9) Eosinophils (%) (Auto) 2 % (0-3) Basophils (%) (Auto) 1 % (0-3) Neutrophils # (Auto) 3.3 x10^3uL (1.8-7.7) Lymphocytes # (Auto) 1.0 x10^3/uL (1.0-4.8) Monocytes # (Auto) 0.5 x10^3/uL (0.0-1.1) Eosinophils # (Auto) 0.1 x10^3/uL (0.0-0.7) Basophils # (Auto) 0.1 x10^3/uL (0.0-0.2) Sodium Level 141 mmol/L (136-145) Potassium Level 4.9 mmol/L (3.5-5.1) Chloride Level 116 mmol/L (98-107) Carbon Dioxide Level 16 mmol/L (21-32) Anion Gap 9 (6-14) Blood Urea Nitrogen 44 mg/dL (7-20) Creatinine 3.7 mg/dL (0.6-1.0) Estimated GFR (Cockcroft-Gault) 12.9 Glucose Level 165 mg/dL (70-99) Calcium Level 7.6 mg/dL (8.5-10.1) Microbiology 05/27/17 Urine Culture - Preliminary, Resulted 05/27/17 Urine Culture Result 1 (DAWN) - Preliminary, Resulted Medications Current Medications Morphine Sulfate 2 mg PRN Q15MIN PRN IV/SQ PAIN GREATER THAN 3/10 Last administered on 05/27/17 01:32; Start 05/27/17 at 00:00; Stop 05/27/17 at 03 :00; Status DC Ceftriaxone Sodium 50 ml @ 100 mls/hr 1X ONCE IV Last administered on 01:32; Start 05/27/17 at 02:00; Stop 05/27/17 at 02:29; Status DC Ondansetron HCl (Zofran) 4 mg PRN Q8HRS PRN IV NAUSEA/VOMITING Last administered on 05/27/17 04:29; Start 05/27/17 at 02:00; Stop 05/27/17 at 08 :27; Status DC Morphine Sulfate 2 mg PRN Q2HR PRN IV SEVERE PAIN Last administered on 04:29; Start 05/27/17 at 02:00; Stop 05/28/17 at 01:59; Status DC Ondansetron HCl (Zofran) 4 mg PRN Q6HRS PRN IV NAUSEA/VOMITING; Start at 08:30; Stop 05/28/17 at 08:29; Status DC Ceftriaxone Sodium 1 gm/ Dextrose 50 ml @ 100 mls/hr Q24H IV ; Start 05/27/17 at 08:30; Stop 05/27/17 at 08:39; Status DC Sodium Chloride 1,000 ml @ 100 mls/hr Q10H IV Last administered on 05/27/17 23:03; Start 05/27/17 at 08:30 Diazepam (Valium) 2 mg PRN QID PRN PO ANXIETY; Start 05/27/17 at 08:30 Acetaminophen (Tylenol) 650 mg PRN Q6HRS PRN PO pain; Start 05/27/17 at 08:30 Amlodipine Besylate (Norvasc) 10 mg DAILY PO Last administered on 05/28/17 08 :38; Start 05/27/17 at 09:00 Aspirin (Ecotrin) 81 mg DAILY PO ; Start 05/27/17 at 09:00; Stop 05/27/17 at 11:43; Status DC Carvedilol (Coreg) 3.125 mg BIDWMEALS PO ; Start 05/27/17 at 09:00; Stop 05/27 at 11:43; Status DC Ferrous Sulfate (Feosol) 325 mg TIDWMEALS PO ; Start 05/27/17 at 09:00; Stop 05/27/17 at 11:43; Status DC Gabapentin (Neurontin) 200 mg DAILY PO ; Start 05/27/17 at 09:00; Stop at 11:43; Status DC Acetaminophen/ Hydrocodone Bitart (Lortab 5/325) 1 tab PRN Q6HRS PRN PO PAIN Last administered on 05/28/17 08:42; Start 05/27/17 at 08:30 Acetaminophen/ Hydrocodone Bitart (Lortab 5/325) 1 tab PRN Q6HRS PRN PO PAIN; Start 05/27/17 at 08:30; Stop 05/27/17 at 11:43; Status DC Levothyroxine Sodium (Synthroid) 100 mcg DAILY07 PO Last administered on 08:37; Start 05/27/17 at 10:30 Lorazepam (Ativan) 0.5 mg TID PO Last administered on 05/28/17 08:38; Start 05/27/17 at 09:00 Ondansetron HCl (Zofran Odt) 4 mg PRN Q8HRS PRN PO NAUSEA; Start 05/27/17 at 08:30 Pantoprazole Sodium (Protonix) 40 mg DAILYAC PO Last administered on 08:37; Start 05/27/17 at 08:30 Sennosides (Senna) 17.2 mg PRN BID PRN PO CONSTIPATION; Start 05/27/17 at 08: 30 Bupropion HCl (Wellbutrin Xl) 300 mg DAILY PO ; Start 05/27/17 at 09:00; Stop 05/27/17 at 11:43; Status DC Non-Formulary Medication 50,000 unit WEEKLY PO ; Start 05/27/17 at 09:00; Stop 05/27/17 at 11:43; Status DC Gabapentin (Neurontin) 300 mg DAILY PO ; Start 05/27/17 at 09:00; Stop at 11:43; Status DC Insulin Detemir (Levemir) 10 units QHS SQ Last administered on 05/27/17 21:09 ; Start 05/27/17 at 21:00 Non-Formulary Medication TIDAC SQ ; Start 05/27/17 at 11:30; Stop 05/27/17 at 14:52; Status DC Multivitamins (Thera M Plus) 1 tab DAILY PO ; Start 05/27/17 at 09:00; Stop at 11:43; Status DC Verapamil HCl (Calan) 120 mg TID PO ; Start 05/27/17 at 09:00; Stop 05/27/17 at 11:43; Status DC Insulin Aspart (NovoLOG) 0-9 UNITS TIDWMEALS SQ Last administered on 17:34; Start 05/27/17 at 12:00 Dextrose (Dextrose 50%-Water Syringe) 12.5 gm PRN Q15MIN PRN IV SEE COMMENTS; Start 05/27/17 at 08:30 Labetalol HCl (Normodyne) 10 mg PRN Q2HR PRN IVP HYPERTENSION, SEE COMMENTS; Start 05/27/17 at 08:30 Ceftriaxone Sodium (Rocephin) 1 gm Q24H IVP Last administered on 05/28/17 08: 37; Start 05/27/17 at 09:00 Magnesium Sulfate/ Dextrose 50 ml @ 25 mls/hr 1X ONCE IV Last administered on 05/27/17 12:55; Start 05/27/17 at 09:00; Stop 05/27/17 at 10:59; Status DC Vitamin B Complex/ Vitamin C (Marry-Marisa) 1 tab DAILY PO Last administered on 12:45; Start 05/27/17 at 12:00 Metoclopramide HCl (Reglan) 10 mg BIDAC PO Last administered on 05/28/17 08: 38; Start 05/27/17 at 11:30 Citalopram Hydrobromide (CeleXA) 40 mg DAILY PO Last administered on 08:38; Start 05/27/17 at 12:00 Non-Formulary Medication 10 unit HS SQ ; Start 05/27/17 at 21:00; Status UNV Lactobacillus Rhamnosus (Culturelle) 1 cap BID PO Last administered on 08:38; Start 05/27/17 at 21:00 Sodium Bicarbonate (Sodium Bicarbonate) 1,300 mg TID PO Last administered on t 08:38; Start 05/27/17 at 16:00 Active Scripts Active Zofran Odt (Ondansetron) 4 Mg Tab.rapdis 1 Tab SL PRN Q8HRS PRN Hydrocodone-Apap 5-325 (Hydrocodone Bit/Acetaminophen) 1 Each Tablet 1 Tab PO PRN Q6HRS PRN Pantoprazole Sodium 40 Mg Tablet.dr 40 Mg PO DAILYAC Senna (Sennosides) 8.6 Mg Tablet 17.2 Mg PO PRN BID PRN Reported Coreg (Carvedilol) 12.5 Mg Tablet 1 Tab PO BID Coreg (Carvedilol) 6.25 Mg Tablet 1 Tab PO BID Lantus (Insulin Glargine,Hum.rec.anlog) 100 Unit/1 Ml Vial 10 Unit SQ HS Nephro-Marisa Tablet (Folic Acid/Vitamin B Comp W-C) 0.8 Mg Tablet 1 Tab PO DAILY Reglan (Metoclopramide Hcl) 10 Mg Tablet 10 Mg PO BIDAC Lexapro (Escitalopram Oxalate) 20 Mg Tablet 1 Tab PO DAILY Renvela (Sevelamer Carbonate) 800 Mg Tablet 2 Tab PO TID Amlodipine Besylate 10 Mg Tablet 10 Mg PO DAILY Humalog (Insulin Lispro) 100 Unit/1 Ml Cartridge 0 SQ TIDAC Sliding scale insulin: blood sugar divided by 25 = units Levothyroxine Sodium 100 Mcg Tablet 1 Tab PO DAILY Lorazepam 0.5 Mg Tablet 1 Tab PO TID 9am 3pm and 9pm Gabapentin 300 Mg Capsule 300 Mg PO HS 300 mg daily at 9pm Vitals/I & O Vital Sign - Last 24 Hours 05/27/17 05/27/17 05/27/17 05/27/17 12:47 15:04 19:00 23:00 Temp 98.4 98.1 97.9 98.4 98.1 97.9 Pulse 88 89 85 80 Resp 13 16 16 B/P (MAP) 176/76 181/86 (117) 121/56 (77) 108/45 (66) Pulse Ox 97 97 93 O2 Delivery Room Air Room Air Room Air 05/27/17 05/28/17 05/28/17 05/28/17 23:50 00:50 02:44 07:00 Temp 96.6 97.5 96.6 97.5 Pulse 74 79 Resp 17 16 B/P (MAP) 131/61 (84) 150/72 (98) Pulse Ox 92 98 O2 Delivery Room Air Room Air Room Air Room Air 05/28/17 08:38 Pulse 79 B/P (MAP) 150/72 Intake and Output 05/27/17 05/27/17 05/28/17 15:00 23:00 07:00 Intake Total 300 ml 250 ml Output Total 10 ml 250 ml Balance 290 ml 0 ml JEFFRY OLIVARES MD May 28, 2017 10:37
[2017-05-28 10:45] VITALS: BP 128/59
[2017-05-28 15:00] VITALS: BP 139/69
[2017-05-28 19:00] VITALS: BP 149/70
[2017-05-28] MEDS: CIPROFLOXACIN HCL 250 MG TABLET. PO SCH (20:42)
[2017-05-28] MEDS: INSULIN DETEMIR 300 UNITS/3 ML INSULN.PEN. SQ SCH (20:52)
[2017-05-28 23:04] VITALS: BP 142/82
[2017-05-29] MEDS: IV NORMAL SALINE 1000ML BAG 1,000 ML IV SCH (02:59)
[2017-05-29] MEDS: HYDROcodone/APAP 5/325MG 1 TAB TABLET PO PRN (02:59)
[2017-05-29 03:53] VITALS: BP 118/51
[2017-05-29] MEDS: LEVOTHYROXINE 100 MCG TABLET PO SCH (06:27)
[2017-05-29 07:00] VITALS: BP 182/84
[2017-05-29] MEDS: INSULIN ASPART 300 UNITS/3 ML INSULN.PEN SQ SCH ×2 (08:00→12:00)
[2017-05-29] MEDS: amLODIPine BESYLATE 10 MG TABLET PO SCH (09:00)
[2017-05-29] MEDS: PANTOPRAZOLE 40 MG TABLET.DR. PO SCH (09:40)
[2017-05-29] MEDS: LORazepam 0.5 MG TABLET PO SCH (09:40)
[2017-05-29] MEDS: CIPROFLOXACIN HCL 250 MG TABLET. PO SCH (09:40)
[2017-05-29] MEDS: LACTOBACILLUS RHAMNOSUS GG 1 CAPSULE. PO SCH (09:40)
[2017-05-29] MEDS: FOLIC/VIT B COMP W-C (RENAL) TABLET. PO SCH (09:41)
[2017-05-29] MEDS: SODIUM BICARBONATE 650 MG TABLET. PO SCH (09:41)
[2017-05-29] MEDS: CITALOPRAM 20 MG TABLET. PO SCH (09:41)
[2017-05-29] MEDS: METOCLOPRAMIDE 10 MG TABLET. PO SCH (09:42)
[2017-05-29] MEDS ORDERED: CIPR250T30 PO (10:35)
--- NOTE | 2017-05-29 10:41 | PDOC3 ---
Discharge Summary Visit Information Date of Admission: May 27, 2017 Date of Discharge: May 29, 2017 Admitting Diagnosis: headache, renal failure Final Diagnosis 1. A kidney injury, on CKD stage 5, nearing esrd 2. Hyperkalemia, resolved 3., MIgraines, acute on chronic, has been on imitrex and excedrin in past 4. UTI, asymptomatic 5. DM 2 unknown hgba1c 6. Hypomagnesemia, replaced Problems Medical Problems: (1) Headache Status: Acute (2) Renal insufficiency Status: Acute Brief Hospital Course Allergies Allergies Coded Allergies Type Severity Reaction Last Updated Verified I S O L A T I O N *CONTACT* Allergy Unknown 04/09/16 Yes lisinopril Adverse Reaction Intermediate headache 04/09/16 Yes losartan Adverse Reaction Intermediate headache 04/09/16 Yes Vital Signs Vital Signs Date Time Temp Pulse Resp B/P (MAP) Pulse Ox O2 Delivery O2 Flow Rate FiO2 05/29/17 09:38 77 182/84 05/29/17 07:00 98.3 18 94 Room Air 98.3 Lab Results Laboratory Tests Test 05/27/17 11:50 05/27/17 17:14 05/28/17 03:30 05/28/17 07:04 Glucose (Fingerstick) 192 mg/dL (70-99) 261 mg/dL (70-99) 137 mg/dL (70-99) White Blood Count 4.9 x10^3/uL (4.0-11.0) Red Blood Count 2.95 x10^6/uL (3.50-5.40) Hemoglobin 8.9 g/dL (12.0-15.5) Hematocrit 27.4 % (36.0-47.0) Mean Corpuscular Volume 93 fL (79-100) Mean Corpuscular Hemoglobin 30 pg (25-35) Mean Corpuscular Hemoglobin Concent 32 g/dL (31-37) Red Cell Distribution Width 17.0 % (11.5-14.5) Platelet Count 162 x10^3/uL (140-400) Neutrophils (%) (Auto) 67 % (31-73) Lymphocytes (%) (Auto) 21 % (24-48) Monocytes (%) (Auto) 10 % (0-9) Eosinophils (%) (Auto) 2 % (0-3) Basophils (%) (Auto) 1 % (0-3) Neutrophils # (Auto) 3.3 x10^3uL (1.8-7.7) Lymphocytes # (Auto) 1.0 x10^3/uL (1.0-4.8) Monocytes # (Auto) 0.5 x10^3/uL (0.0-1.1) Eosinophils # (Auto) 0.1 x10^3/uL (0.0-0.7) Basophils # (Auto) 0.1 x10^3/uL (0.0-0.2) Sodium Level 141 mmol/L (136-145) Potassium Level 4.9 mmol/L (3.5-5.1) Chloride Level 116 mmol/L (98-107) Carbon Dioxide Level 16 mmol/L (21-32) Anion Gap 9 (6-14) Blood Urea Nitrogen 44 mg/dL (7-20) Creatinine 3.7 mg/dL (0.6-1.0) Estimated GFR (Cockcroft-Gault) 12.9 Glucose Level 165 mg/dL (70-99) Calcium Level 7.6 mg/dL (8.5-10.1) Test 05/28/17 11:56 05/28/17 17:15 05/29/17 07:27 Glucose (Fingerstick) 131 mg/dL (70-99) 138 mg/dL (70-99) 114 mg/dL (70-99) Laboratory Tests Test 05/28/17 11:56 05/28/17 17:15 05/29/17 07:27 Glucose (Fingerstick) 131 mg/dL (70-99) 138 mg/dL (70-99) 114 mg/dL (70-99) Brief Hospital Course Ms. Howard is a 51 old female admit with presents to the hospital with migraine. found to have acute worsened labs, and UTI She follows with Dr. Thomas Garvey for her underlying chronic kidney disease with baseline serum creatinine of 2.6 Her current creatinine is increased to 3.6 mg percent. Creat stable high at 3.7 at DC Nearing ESRD per renal consult, f/u her Renal Discharge Information Condition at Discharge: Improved Follow Up: Weeks Disposition/Orders: D/C to Home Scheduled Amlodipine Besylate (Amlodipine Besylate), 10 MG PO DAILY, (Reported) Carvedilol (Coreg), 1 TAB PO BID, (Reported) Carvedilol (Coreg), 1 TAB PO BID, (Reported) Escitalopram Oxalate (Lexapro), 1 TAB PO DAILY, (Reported) Folic Acid/Vitamin B Comp W-C (Nephro-Marisa Tablet), 1 TAB PO DAILY, (Reported) Gabapentin (Gabapentin), 300 MG PO HS, (Reported) Insulin Glargine,Hum.rec.anlog (Lantus), 10 UNIT SQ HS, (Reported) Insulin Lispro (Humalog), 0 SQ TIDAC, (Reported) Levothyroxine Sodium (Levothyroxine Sodium), 1 TAB PO DAILY, (Reported) Lorazepam (Lorazepam), 1 TAB PO TID, (Reported) Metoclopramide Hcl (Reglan), 10 MG PO BIDAC, (Reported) Pantoprazole Sodium (Pantoprazole Sodium), 40 MG PO DAILYAC Sevelamer Carbonate (Renvela), 2 TAB PO TID, (Reported) Scheduled PRN Hydrocodone Bit/Acetaminophen (Hydrocodone-Apap 5-325 ), 1 TAB PO PRN Q6HRS PRN for PAIN Ondansetron (Zofran Odt), 1 TAB SL PRN Q8HRS PRN for NAUSEA Sennosides (Senna), 17.2 MG PO PRN BID PRN for CONSTIPATION Patient Instructions Patient Instructions > 30 min SHAQ DUONG MD May 29, 2017 10:41
[2017-05-29 11:00] VITALS: BP 142/62
--- NOTE | 2017-05-29 11:57 | PDOC ---
Renal-Progress Notes Subjective Notes Notes NONE History of Present Illness Hx of present illness STABLE Vitals Vitals Vital Signs Date Time Temp Pulse Resp B/P (MAP) Pulse Ox O2 Delivery O2 Flow Rate FiO2 05/29/17 11:00 98.1 71 18 142/62 (88) 95 Room Air 98.1 Weight Weight [ ] I.O. Intake and Output Intake and Output 05/29/17 07:00 Intake Total 1180 ml Output Total 850 ml Balance 330 ml Intake Oral 1180 ml Output Urine Total 850 ml Labs Labs Laboratory Tests Test 05/28/17 11:56 05/28/17 17:15 05/29/17 07:27 05/29/17 11:38 Glucose (Fingerstick) 131 mg/dL (70-99) 138 mg/dL (70-99) 114 mg/dL (70-99) 141 mg/dL (70-99) Micro Micro Microbiology 05/27/17 Urine Culture - Preliminary, Resulted 05/27/17 Urine Culture Result 1 (DAWN) - Preliminary, Resulted Review of Systems Constitutional: yes: alert, oriented Ears/Nose/Throat: Yes: no symptom reported Eyes: Yes: no symptom reported Pulmonary: Yes no symptom reported Cardiovascular: Yes no symptom reported Gastrointestional: Yes: no symptom reported Genitourinary: Yes: no symptom reported Skin: Yes no symptom reported Psychiatric/Neurological: Yes: no symptom reported Endocrine: Yes: no symptom reported Physical Exam General Appearance: no apparent distress Skin: warm Respiratory: bilateral CTA Heart: S1S2 Abdomen: soft Genitourinary: bladder flat Extremities: pulses present, no edema, atrophy Musculoskeletal: Osteoarthritis Assessment Assessment IMP [id number] CR OF ABOUT 3.7 CKD STAGE 3B TO STAGE 4 WITH BASELINE CR NEAR 2.0 DM II HTN DEHYDRATION N/V DUE TO GASTROPARESIS PLAN CONT WITH IVF'S ENC PO WOULD LIKE TO SEE CR TRENDING EVA PRIOR TO D/C LABS IN AM KELLY WOODALL MD May 29, 2017 11:57
[2017-05-29 14:00] LABS: BASO # 0.1 x10^3/uL (0.0-0.2); BASO % 1 % (0-3); EOS % 2 % (0-3); HEMATOCRIT 31.4 % (36.0-47.0); HEMOGLOBIN 10.1 g/dL (12.0-15.5); LYMPH # 0.5 x10^3/uL (1.0-4.8); LYMPH % 10 % (24-48); MEAN CORPUSCULAR HEMOGLOBIN 30 pg (25-35); MEAN CORPUSCULAR HGB CONC 32 g/dL (31-37); MEAN CORPUSCULAR VOLUME 93 fL (79-100); MONO % 7 % (0-9); NEUT % 81 % (31-73); PLATELET COUNT 179 x10^3/uL (140-400); RED BLOOD COUNT 3.37 x10^6/uL (3.50-5.40); RED CELL DISTRIBUTION WIDTH 16.3 % (11.5-14.5); WHITE BLOOD COUNT 5.6 x10^3/uL (4.0-11.0)
[2017-05-29 14:34] LABS: CALCIUM 8.1 mg/dL (8.5-10.1); CREATININE 3.5 mg/dL (0.6-1.0); GFR 13.8; POTASSIUM 5.1 mmol/L (3.5-5.1)
[2017-05-29 15:00] VITALS: BP 151/61
== END 2017-05-29 17:53 | disposition home or self-care (01) | DRG 682 ==
LOC: ER 22:48 → 6 SOUTH 05-27 00:30
PROVIDERS: ADMIT Internal Medicine; ATTEND Internal Medicine
DX: N17.0 Acute kidney failure with tubular necrosis (principal); E43 Unspecified severe protein-calorie malnutrition; I13.2 Hypertensive heart and chronic kidney disease with heart failure and with stage 5 chronic kidney disease, or end stage renal disease; E11.21 Type 2 diabetes mellitus with diabetic nephropathy; K31.84 Gastroparesis; E83.42 Hypomagnesemia; E11.42 Type 2 diabetes mellitus with diabetic polyneuropathy; E86.0 Dehydration; N39.0 Urinary tract infection, site not specified; E87.2 Acidosis; E11.319 Type 2 diabetes mellitus with unspecified diabetic retinopathy without macular edema; N18.5 Chronic kidney disease, stage 5; G43.909 Migraine, unspecified, not intractable, without status migrainosus; E03.9 Hypothyroidism, unspecified; E11.22 Type 2 diabetes mellitus with diabetic chronic kidney disease; E11.43 Type 2 diabetes mellitus with diabetic autonomic (poly)neuropathy; E87.5 Hyperkalemia; G25.81 Restless legs syndrome; I50.9 Heart failure, unspecified; Z83.3 Family history of diabetes mellitus; Z85.44 Personal history of malignant neoplasm of other female genital organs; Z90.49 Acquired absence of other specified parts of digestive tract; Z99.2 Dependence on renal dialysis; F32.9 Major depressive disorder, single episode, unspecified; Z87.01 Personal history of pneumonia (recurrent); M19.90 Unspecified osteoarthritis, unspecified site; Z86.2 Personal history of diseases of the blood and blood-forming organs and certain disorders involving the immune mechanism; Z98.51 Tubal ligation status; Z91.041 Radiographic dye allergy status
CPT/HCPCS: 36415; 70450; 76770; 80048; 80076; 80307; 81001; 82553; 82962; 83690; 83735; 83880; 84443; 84484; 85007; 85025; 85610; 87086; 87186; 93005; J0690; J0696; J1815; J2270; J2405; J3490; J7030; J7060; J8597; Q0162; 99285-25; G0479